=== PATIENT | female | born 1995 | race Caucasian/White ===

== ENCOUNTER 2017-09-17 00:35 | Emergency (ER) | END 2017-09-17 02:22 | disposition home or self-care (01) ==

== ENCOUNTER 2017-11-20 16:05 | Emergency (ER) | END 2017-11-20 18:59 | disposition home or self-care (01) ==

== ENCOUNTER 2018-09-26 09:56 | Day surgery (SDC) | payer OTHER ==
[2018-09-23 17:45] VITALS: BMI 30.2
[~2018-09-26] VITALS: Ht 157.5 cm; Wt 75.9 kg
[2018-09-26] VITALS (17 sets, daily range): BP systolic 119–157; BP diastolic 62–99; PULSE 80–98; RESP 13–26; Ht 157.5 cm; Wt 75.9 kg
[~2018-09-26 09:56] MED LIST: CEFAZOLIN 2 GM/50 ML (PMX) 50 ML IVPB ONE; CEPH-443 PO; FLUC150T PO; LORA-441 PO; SOD CHLORIDE 0.9% 1,000 ML IV ONE
--- NOTE | 2018-09-26 12:19 | PREAC ---
Date/Time of Note Date/Time of Note DATE: 09/26/18 TIME: 12:17 Anesthesia Eval and Record Evaluation Time Pre-Procedure Interview DATE: 09/26/18 TIME: 12:17 Age 22 Sex female NPO: 8 hrs Preoperative diagnosis gallstones Planned procedure laproscopic cholecystectomy Past Medical History Past Medical History: Includes GI: Obesity Surgery & Anesthesia Issues No known issue Meds Anticoagulation: No Beta Gómez within 24 hr: No Reason Beta Gómez not given: Pt. not on B-Gómez Discontinued Scripts Fluconazole* (Diflucan*) 150 Mg Tablet, 150 MG PO ONCE, #1 TAB Take after completion of antibiotics. Prov:DOMINIQUE MONROY MD 11/20/17 Cephalexin* (Keflex*) 500 Mg Capsule, 500 MG PO QID for 5 Days, CAP Prov:DOMINIQUE MONROY MD 11/20/17 Lorazepam* (Ativan*) 0.5 Mg Tablet, 0.5 MG PO Q8, #6 TAB Prov:EMMYPEREZSUSHIL 09/17/17 Current Medications Sodium Chloride 1,000 ml @ 75 mls/hr [id number] ONCE IV ; Start 09/26/18 at 07:00; Stop 09/26/18 at 20:19 Meds reviewed: Yes Allergies Coded Allergies: No Known Allergy (Unverified , 09/26/18) Allergies Reviewed: Yes Labs/Studies Labs Reviewed: Reviewed by anesthesiologist Result Diagram: 09/26/18 1053 09/26/18 1053 Laboratory Tests 09/26/18 10:53 test: Negative Pre-procedure Exam Last vitals Vital Signs Date Temp Pulse Resp B/P (MAP) Pulse Ox O2 O2 Flow FiO2 Time Delivery Rate 09/26/18 96.5 80 16 121/76 97 11:14 (91) Airway: Adequate mouth opening, Adequate thyromental dist Mallampati: Mallampati I Teeth: Normal Lung: Normal Heart: Normal ASA Physical Status ASA physical status: 1 Emergency: None Pre-operative Attestations Prior to commencing anesthesia and surgery, the patient was re-evaluated, there was verification of: *The patient's identity *The results of appropriate recent lab work and preoperative vital signs *The above evaluation not changing prior to induction *Anesthetic plan, risk benefits, alternative and complications discussed with patient/family; questions answered; patient/family understands, accepts and wishes to proceed. HONORIO CISNEROS DO Sep 26, 2018 12:19
[2018-09-26] MEDS ORDERED: PROPOFOL 20 ML ONE (12:23)
[2018-09-26] MEDS ORDERED: MIDAZOLAM 1 MG/ML 2 ML INJ ONE (12:23)
[2018-09-26] MEDS ORDERED: ROCURONIUM 50 MG INJ ONE (12:23)
[2018-09-26] MEDS ORDERED: LIDOCAINE 2% (SDV) 5 ML INJ ONE (12:23)
[2018-09-26] MEDS ORDERED: ROPIVACAINE 0.5 % 30 ML VIAL ONE (12:24)
[2018-09-26] MEDS ORDERED: OXYCODONE/ACETAMINOPHEN (5/325) TAB PO PRN ×2 (12:30)
[2018-09-26] MEDS ORDERED: MEPERIDINE 25 MG INJ IV PRN (12:30)
[2018-09-26] MEDS ORDERED: LABETALOL HCL 20MG INJ IV PRN (12:30)
[2018-09-26] MEDS ORDERED: LORAZEPAM 2 MG INJ IV PRN (12:30)
[2018-09-26] MEDS ORDERED: DIPHENHYDRAMINE 50 MG INJ IV PRN (12:30)
[2018-09-26] MEDS ORDERED: HYDROmorphONE 1 MG/5 ML IV SYRINGE IV PRN ×2 (12:30)
[2018-09-26] MEDS ORDERED: ONDANSETRON 4 MG INJ IV PRN (12:30)
[2018-09-26] MEDS ORDERED: ONDANSETRON 4 MG INJ ONE (13:02)
[2018-09-26] MEDS ORDERED: CEFAZOLIN 1 GM INJ ONE (13:02)
[2018-09-26] MEDS ORDERED: FAMOTIDINE 20 MG INJ ONE (13:02)
[2018-09-26] MEDS ORDERED: SUGAMMADEX SODIUM 200 MG/2 ML VIAL IV ONE (13:29)
[2018-09-26] MEDS ORDERED: HYDROCODONE/APAP (5/325) TAB PO ONE (13:30)
--- NOTE | 2018-09-26 13:33 | OPR ---
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 She required surgical excision of her gallbladder. Risks alternatives benefits and percent were discussed with the patient. Patient expressed understanding consents to the operation. Procedure Description Patient is taken to the OR and prepped and draped in usual sterile fashion. Surgical time was performed. IV antibiotics given. Infraumbilical transverse incision was made at the 15 blade. Dissection with cautery carried onto the fascia. The fascia was grasped with [place] is divided with curved Stark scissors. 0 Vicryl use this was placed into the fascia. Cota trocar was introduced. Pneumoperitoneum is established. Midepigastric 12 mm optical trochars placed under direct visualization. Right upper quadrant upper flank 5 mm optical troch ars were placed under direct visualization. Upon initial inspection there is some adhesions to gallbladder taken bluntly. The gallbladder was grasped the fundus retracted and lateral cephalad direction. [place] graspers were used to dissect out the cystic duct and cystic artery. The critical view was established. The cystic duct is divided to close proximal clip distal and the divisions performed laparoscopic scissors. Cystic artery was divided to close proximal to distal and the divisions performed laparoscopic scissors. The gallbladder was taken of the gallbladder bed. Good hemostasis status. The gallbladder was retrieved Endo Catch bag. All ports removed under direct visualization. Overdiuresis tied down. Skin is closed and skin giovanni. A tap block was provided by the anesthesiology at the beginning of the case. Dry dressings were applied. Susan LARA Sep 26, 2018 13:33
--- NOTE | 2018-09-26 13:48 | PAC ---
Date/Time of Note Date/Time of Note DATE: 09/26/18 TIME: 13:48 Post-Anesthesia Notes Post-Anesthesia Note Last documented vital signs Vital Signs Date Temp Pulse Resp B/P (MAP) Pulse Ox O2 O2 Flow FiO2 Time Delivery Rate 09/26/18 98 75 18 120/62 97 1348 Activity: WNL Respiratory function: WNL Cardiovascular function: WNL Mental status: Baseline Pain reasonably controlled: Yes Hydration appropriate: Yes Nausea/Vomiting absent: Yes HONORIO CISNEROS DO Sep 26, 2018 13:48
[2018-09-26] MEDS: HYDROmorphONE 1 MG/5 ML IV SYRINGE IV PRN ×3 (13:58→14:36)
== END 2018-09-26 17:15 | disposition home or self-care (01) ==
LOC: SDS 09:56
PROVIDERS: ATTEND Surgery
DX: K80.20 Calculus of gallbladder without cholecystitis without obstruction (principal); K80.10 Calculus of gallbladder with chronic cholecystitis without obstruction
CPT/HCPCS: 47562; 80048; 84703; 85025; 85610; 85730; 88304; J0690; J1170; J2175; J2250; J2405; J2795; J3010; Z7512; Z7610